=== PATIENT | female | born 1955 | race Caucasian/White ===

== ENCOUNTER 2023-05-20 21:35 | Inpatient (IN) | payer MEDICAID ==
[~2023-05-20] VITALS: Ht 165.1 cm; Wt 58.7 kg
[~2023-05-20 21:35] MED LIST: AMLO5TAB88 PO; SULF1TAB47 MT
[2023-05-20] MEDS ORDERED: MORPHINE SULFATE 4 MG/ML CPJ (NOT FOR IM USE) IV STA (22:18)
[2023-05-20] MEDS ORDERED: ONDANSETRON HCL 4MG/2ML INJ IV STA (22:18)
[2023-05-20] MEDS ORDERED: SODIUM CHLORIDE 0.9% 1,000 ML IV ONE (22:30)
[2023-05-20 23:13] LABS: INR 1.1; PROTHROMBIN TIME 11.8 sec (9.6-11.0)
[2023-05-21] MEDS ORDERED: GUAIFENESIN 200MG/10ML SUGAR FREE UDC PO PRN (00:15)
[2023-05-21] MEDS ORDERED: ACETAMINOPHEN 325MG TABLET PO PRN (00:15)
[2023-05-21] MEDS ORDERED: MAGNESIUM/ALUMINUM HYDROXIDE/SIMETHICONE 30ML UDC PO PRN (00:15)
[2023-05-21] MEDS ORDERED: IPRATROPIUM/ALBUTEROL 0.5-3(2.5)MG/3ML NEB HHN PRN (00:15)
[2023-05-21] MEDS ORDERED: DEXTROSE 50% WATER 50ML SYRINGE IV PRN (00:15)
[2023-05-21] MEDS ORDERED: DOCUSATE SODIUM 100MG CAPSULE PO PRN (00:15)
[2023-05-21] MEDS ORDERED: CLONIDINE 0.1MG TABLET PO PRN (00:15)
[2023-05-21 00:32] LABS: CLARITY URINE CLOUDY (CLEAR); COLOR URINE DARK YELLOW (YELLOW); GLUCOSE URINE 3+ (NEGATIVE); KETONES URINE 2+ (NEGATIVE); LEUKOCYTE ESTERASE URINE 3+ (NEGATIVE); NITRITE URINE POSITIVE (NEGATIVE); OCCULT BLOOD URINE TRACE (NEGATIVE); PH URINE 5.5 (4.5-8.0); PROTEIN URINE TRACE (NEGATIVE); SPECIFIC GRAVITY URINE 1.019 (1.005-1.030)
[2023-05-21 00:46] LABS: BACTERIA URINE 3+; RBC URINE 0-2 /hpf (0-2); SQUAMOUS EPITHELIAL CELL URINE 1+ /lpf (RARE/1+); WBC URINE 25-50 /hpf (0-2)
[2023-05-21] MEDS ORDERED: CEFTRIAXONE 1GM PREMIX 50 ML IV SCH (01:00)
[2023-05-21 08:00] VITALS: BP 162/73; PULSE 77; RESP 20; TEMP 98.2
[2023-05-21] MEDS: INSULIN LISPRO 100 UNITS/ML SUBCUT SCH ×4 (08:20→21:00)
[2023-05-21] MEDS: BLOOD SUGAR DIAGNOSTIC STRIP TEST SCH ×4 (09:24→21:00)
[2023-05-21 09:25] LABS: BASOPHILS % 0.8 % (0.0-2.0); EOSINOPHILS % 0.4 % (0.0-5.0); HEMATOCRIT. 25.1 % (36.0-48.0); HEMOGLOBIN. 8.7 g/dL (12.0-16.0); MEAN CORPUSCULAR HEMOGLOBIN 28.9 pg (28.0-32.0); MEAN CORPUSCULAR HGB CONC 34.4 g/dL (31.0-37.0); MEAN CORPUSCULAR VOLUME 83.8 fL (81.0-99.0); MEAN PLATELET VOLUME 6.6 fl (7.4-10.4); MONOCYTES % 8.9 % (2.0-8.0); NEUTROPHILS % 51.9 % (40.0-76.0); PLATELET 582 x1000/uL (130-400); RED CELL DISTRIBUTION WIDTH 15.2 % (11.6-14.6); WHITE BLOOD COUNT 7.2 x1000/uL (4.5-11.0)
[2023-05-21 09:31] LABS: CHLORIDE 101 mEq/L (98-107); INDEX HEMOLYSI 1 (1-3); INDEX ICTERIC 1 (1-4); INDEX LIPEMIC 1 (1-3); SODIUM 132 mEq/L (136-145)
[2023-05-21] MEDS: AMLODIPINE 5MG TABLET PO SCH (09:33)
[2023-05-21] MEDS: PANTOPRAZOLE SODIUM 40 MG/VIAL IV SCH (09:33)
[2023-05-21 09:43] LABS: ALANINE AMINOTRANSFERASE 11 IU/L (13-61); ALBUMIN 2.3 g/dL (3.4-5.0); ASPARTATE AMINOTRANSFERASE 22 IU/L (15-37); BILIRUBIN TOTAL 0.5 mg/dL (0.1-1.0); CALCIUM 7.6 mg/dL (8.5-10.1); CARBON DIOXIDE 21 mEq/L (21-32); CREATINE KINASE 51 IU/L (26-192); CREATININE 0.5 mg/dL (0.6-1.3); GLUCOSE 84 mg/dL (70-105); PROTEIN TOTAL 5.4 g/dL (6.0-8.3); TROPONIN I HIGH SENSITIVITY 12 ng/L (<54); UREA NITROGEN BLOOD 4 mg/dL (7-21)
[2023-05-21] MEDS: SODIUM CHLORIDE 0.9% 1,000 ML IV SCH ×2 (11:00→20:15)
[2023-05-21] MEDS: ENOXAPARIN 40MG/0.4ML SYR SUBCUT SCH (11:12)
[2023-05-21 12:42] VITALS: BP 116/84; PULSE 83; RESP 18; TEMP 98.2
[2023-05-21] MEDS ORDERED: NA PHOS,M-B/NA PHOS,DI-BA ENEMA 118ML PR PRN (13:00)
[2023-05-21] MEDS ORDERED: MAGNESIUM HYDROXIDE 400MG/5ML 30ML UDC PO PRN (13:00)
[2023-05-21] MEDS: POLYETHYLENE GLYCOL 3350 (17GM) 1 DOSE PACK PO SCH (14:56)
[2023-05-21] MEDS ORDERED: POTASSIUM CHLORIDE INJ 40 MEQ in DEXT 5% WATER 500 ML IV NR (15:00)
[2023-05-21 16:11] LABS: CALCIUM 7.6 mg/dL (8.5-10.1); CHLORIDE 101 mEq/L (98-107); INDEX HEMOLYSI 1 (1-3); INDEX ICTERIC 1 (1-4); INDEX LIPEMIC 1 (1-3); POTASSIUM 3.1 mEq/L (3.5-5.1); SODIUM 131 mEq/L (136-145)
[2023-05-21 16:20] LABS: CARBON DIOXIDE 20 mEq/L (21-32); CREATINE KINASE 50 IU/L (26-192); CREATININE 0.6 mg/dL (0.6-1.3); GLUCOSE 88 mg/dL (70-105); TROPONIN I HIGH SENSITIVITY 12 ng/L (<54); UREA NITROGEN BLOOD 4 mg/dL (7-21)
[2023-05-21 17:23] VITALS: BP 137/64; PULSE 80; RESP 18; TEMP 98.6
[2023-05-21 20:00] VITALS: BP 121/62; PULSE 84; RESP 19; TEMP 97.7
[2023-05-21] MEDS: SENNOSIDES/DOCUSATE SOD 8.6/50MG TABLET PO SCH (21:40)
[2023-05-22] VITALS: BP 118/70; PULSE 73; RESP 20; TEMP 98.6
[2023-05-22 04:00] VITALS: BP 117/78; PULSE 84; RESP 17; TEMP 97.1
[2023-05-22] MEDS: CEFTRIAXONE 1,000 MG in DEXTROSE 5% WATER 50 ML IV SCH (04:56)
[2023-05-22 06:58] LABS: BASOPHILS % 1.1 % (0.0-2.0); EOSINOPHILS % 0.2 % (0.0-5.0); HEMOGLOBIN. 9.3 g/dL (12.0-16.0); LYMPHOCYTES % 29.5 % (20.0-50.0); MEAN CORPUSCULAR HEMOGLOBIN 28.8 pg (28.0-32.0); MEAN CORPUSCULAR HGB CONC 33.2 g/dL (31.0-37.0); MEAN CORPUSCULAR VOLUME 86.8 fL (81.0-99.0); MEAN PLATELET VOLUME 7.4 fl (7.4-10.4); MONOCYTES % 8.7 % (2.0-8.0); NEUTROPHILS % 60.5 % (40.0-76.0); PLATELET 297 x1000/uL (130-400); RED BLOOD CELL COUNT 3.22 mill/uL (4.2-5.4); RED CELL DISTRIBUTION WIDTH 15.5 % (11.6-14.6); WHITE BLOOD COUNT 10.1 x1000/uL (4.5-11.0)
[2023-05-22 07:12] LABS: CHLORIDE 101 mEq/L (98-107); INDEX HEMOLYSI 1 (1-3); INDEX ICTERIC 1 (1-4); INDEX LIPEMIC 1 (1-3); POTASSIUM 4.7 mEq/L (3.5-5.1); SODIUM 129 mEq/L (136-145)
[2023-05-22] MEDS: INSULIN LISPRO 100 UNITS/ML SUBCUT SCH ×4 (07:24→20:11)
[2023-05-22] MEDS: BLOOD SUGAR DIAGNOSTIC STRIP TEST SCH ×4 (07:24→20:11)
[2023-05-22 08:00] VITALS: BP 157/83; PULSE 94; RESP 18; TEMP 97.9
[2023-05-22 08:51] LABS: ALANINE AMINOTRANSFERASE 11 IU/L (13-61); ALBUMIN 2.3 g/dL (3.4-5.0); ASPARTATE AMINOTRANSFERASE 23 IU/L (15-37); BILIRUBIN TOTAL 0.5 mg/dL (0.1-1.0); CALCIUM 7.7 mg/dL (8.5-10.1); CARBON DIOXIDE 21 mEq/L (21-32); CREATININE 0.6 mg/dL (0.6-1.3); GLUCOSE 95 mg/dL (70-105); HDL CHOLESTEROL 40 mg/dL (40-59); LDL CHOLESTEROL 31 mg/dL (5-100); PROTEIN TOTAL 5.6 g/dL (6.0-8.3); T4 FREE 1.43 ng/dL (0.76-1.46); TRIGLYCERIDE 87 mg/dL (0-150); UREA NITROGEN BLOOD 3 mg/dL (7-21)
[2023-05-22] MEDS: POLYETHYLENE GLYCOL 3350 (17GM) 1 DOSE PACK PO SCH (08:56)
[2023-05-22] MEDS: PANTOPRAZOLE SODIUM 40 MG/VIAL IV SCH ×2 (08:56→16:34)
[2023-05-22] MEDS: AMLODIPINE 5MG TABLET PO SCH (08:56)
[2023-05-22] MEDS: ONDANSETRON HCL 4MG/2ML INJ IV PRN (09:02)
[2023-05-22 09:29] LABS: CHOLESTEROL 74 mg/dL (<200)
[2023-05-22] MEDS: ENOXAPARIN 40MG/0.4ML SYR SUBCUT SCH (11:50)
[2023-05-22 12:00] VITALS: BP 127/60; PULSE 88; RESP 20; TEMP 97.7
[2023-05-22] MEDS: METOCLOPRAMIDE HCL 10MG/2ML VIAL IV SCH ×3 (13:39→23:52)
[2023-05-22] MEDS ORDERED: HYDROCODONE/ACETAMINOPHEN 5/325MG TABLET PO PRN (14:00)
[2023-05-22 15:48] LABS: INDEX HEMOLYSI 4 (1-3); INDEX ICTERIC 1 (1-4); INDEX LIPEMIC 1 (1-3)
[2023-05-22 15:52] LABS: IRON 28 ug/dL (50-175); TOTAL IRON BINDING CAPACITY 183 ug/dL (250-450)
[2023-05-22 16:00] VITALS: BP 128/71; PULSE 101; RESP 19; TEMP 97.9
[2023-05-22] MEDS: SODIUM CHLORIDE 0.9% 1,000 ML IV SCH ×2 (16:15→16:30)
[2023-05-22 18:33] LABS: INDEX HEMOLYSI 1 (1-3)
[2023-05-22 18:51] LABS: FERRITIN 444 ng/mL (10-291)
[2023-05-22 19:02] LABS: VITAMIN B12 SERUM >2000 pg/mL pg/mL (211-911)
[2023-05-22] MEDS ORDERED: NALOXONE HCL 0.4MG/ML VIAL IV PRN (19:30)
[2023-05-22 20:00] VITALS: BP 153/74; PULSE 104; RESP 17; TEMP 98.3
[2023-05-22] MEDS: SENNOSIDES/DOCUSATE SOD 8.6/50MG TABLET PO SCH (21:00)
[2023-05-23] VITALS: BP 131/68; PULSE 71; RESP 18; TEMP 99.7
[2023-05-23] MEDS: SODIUM CHLORIDE 0.9% 1,000 ML IV SCH ×2 (02:07→12:15)
[2023-05-23 04:00] VITALS: BP 120/70; PULSE 79; RESP 16; TEMP 98.4
[2023-05-23] MEDS: CEFTRIAXONE 1,000 MG in DEXTROSE 5% WATER 50 ML IV SCH (04:56)
[2023-05-23] MEDS: METOCLOPRAMIDE HCL 10MG/2ML VIAL IV SCH ×4 (05:08→16:55)
[2023-05-23 06:37] LABS: BASOPHILS % 0.8 % (0.0-2.0); EOSINOPHILS % 0.2 % (0.0-5.0); HEMATOCRIT. 25.7 % (36.0-48.0); HEMOGLOBIN. 8.6 g/dL (12.0-16.0); LYMPHOCYTES % 33.3 % (20.0-50.0); MEAN CORPUSCULAR HEMOGLOBIN 28.2 pg (28.0-32.0); MEAN CORPUSCULAR HGB CONC 33.5 g/dL (31.0-37.0); MEAN CORPUSCULAR VOLUME 84.1 fL (81.0-99.0); MEAN PLATELET VOLUME 6.7 fl (7.4-10.4); NEUTROPHILS % 57.7 % (40.0-76.0); PLATELET 573 x1000/uL (130-400); RED BLOOD CELL COUNT 3.05 mill/uL (4.2-5.4); RED CELL DISTRIBUTION WIDTH 15.5 % (11.6-14.6); WHITE BLOOD COUNT 10.2 x1000/uL (4.5-11.0)
[2023-05-23] MEDS: BLOOD SUGAR DIAGNOSTIC STRIP TEST SCH ×3 (06:37→17:20)
[2023-05-23] MEDS: INSULIN LISPRO 100 UNITS/ML SUBCUT SCH ×3 (07:50→18:25)
[2023-05-23 08:00] VITALS: BP 141/76; PULSE 107; RESP 18; TEMP 97.5
[2023-05-23 08:02] LABS: CHLORIDE 102 mEq/L (98-107); INDEX HEMOLYSI 1 (1-3); INDEX ICTERIC 1 (1-4); INDEX LIPEMIC 1 (1-3); POTASSIUM 3.2 mEq/L (3.5-5.1); SODIUM 131 mEq/L (136-145)
[2023-05-23 08:12] LABS: CALCIUM 7.1 mg/dL (8.5-10.1); CARBON DIOXIDE 18 mEq/L (21-32); CREATININE 0.5 mg/dL (0.6-1.3); GAMMA GLUTAMYL TRANSPEPTIDASE 22 IU/L (7-32); GLUCOSE 77 mg/dL (70-105); UREA NITROGEN BLOOD 4 mg/dL (7-21)
[2023-05-23] MEDS: POLYETHYLENE GLYCOL 3350 (17GM) 1 DOSE PACK PO SCH (09:00)
[2023-05-23] MEDS: PANTOPRAZOLE SODIUM 40 MG/VIAL IV SCH ×2 (10:19→16:55)
[2023-05-23] MEDS: AMLODIPINE 5MG TABLET PO SCH (10:21)
[2023-05-23] MEDS ORDERED: NITROFURANTOIN 100MG M/M CAPSULE PO SCH (11:45)
[2023-05-23] MEDS ORDERED: WHEA144P PO (11:47)
[2023-05-23] MEDS ORDERED: NITR100C11 PO (11:48)
[2023-05-23] MEDS: ENOXAPARIN 40MG/0.4ML SYR SUBCUT SCH (11:48)
[2023-05-23] MEDS ORDERED: MOM MT (11:50)
[2023-05-23 12:00] VITALS: BP 152/78; PULSE 105; RESP 18; TEMP 97.7
[2023-05-23 16:00] VITALS: BP 139/71; PULSE 113; RESP 18; TEMP 97.8
[2023-05-23] MEDS ORDERED: POTASSIUM CHLORIDE 20MEQ TABLET SR PO NR (18:36)
[2023-05-23 18:47] VITALS: BP 139/71; PULSE 105; TEMP 97.8; O2SAT 99
[2023-05-23] MEDS: ONDANSETRON HCL 4MG/2ML INJ IV PRN (19:02)
== END 2023-05-23 19:50 | disposition home or self-care (01) | DRG 254 ==
LOC: ER 21:35 → MICUSO 05-21 00:11 → EDBEDREQ 05-21 00:21 → EDBEDREQDT 05-21 00:21 → EDBEDREQTM 05-21 00:21 → EDBEDREQSVC 05-21 00:21 → 6EST 05-21 07:47
PROVIDERS: ADMIT Internal Medicine; ATTEND Internal Medicine
DX: K59.00 Constipation, unspecified (principal); E87.1 Hypo-osmolality and hyponatremia; I48.92 Unspecified atrial flutter; K76.0 Fatty (change of) liver, not elsewhere classified; D64.9 Anemia, unspecified; E11.9 Type 2 diabetes mellitus without complications; D75.839 Thrombocytosis, unspecified; E86.0 Dehydration; N39.0 Urinary tract infection, site not specified; I10 Essential (primary) hypertension; K29.70 Gastritis, unspecified, without bleeding; S51.811A Laceration without foreign body of right forearm, initial encounter; K44.9 Diaphragmatic hernia without obstruction or gangrene; K82.8 Other specified diseases of gallbladder; Z79.4 Long term (current) use of insulin; X58.XXXA Exposure to other specified factors, initial encounter; Y93.89 Activity, other specified; Y92.89 Other specified places as the place of occurrence of the external cause; Y99.8 Other external cause status
CPT/HCPCS: 36415; 71045; 74018; 74176; 76700; 80048; 80053; 80061; 81003; 82550; 82607; 82728; 82746; 82962; 82977; 83036; 83540; 83550; 83605; 83735; 84100; 84145; 84439; 84443; 84484; 85025; 85044; 86850; 86900; 87077; 87186; 92610; 93005; 97162; 97166; 97530; 99285; C9113; J0696; J1650; J1815; J2270; J2405; J2765; J3480; J7030; J7060